=== PATIENT | female | born 1970 | race African-American/Black ===

== ENCOUNTER → 2016-09-20 | Outpatient (CLI) | payer BC | END | disposition home or self-care (01) | LOC: C.PAPS 08:35 | PROVIDERS: ATTEND Obstetrics & Gynecology | DX: Z01.419 Encounter for gynecological examination (general) (routine) without abnormal findings (principal) ==

== ENCOUNTER 2017-11-23 23:57 | Emergency (ER) | payer BC, OTHER ==
[~2017-11-23] VITALS: Ht 167.6 cm; Wt 62.6 kg
[2017-11-23 23:59] VITALS: TEMP 36.7; Ht 167.6 cm; Wt 62.6 kg
--- NOTE | 2017-11-24 00:28 | EMERGENCY ROOM VISIT NOTE ---
History Report prepared by Tony: Kayley Watt Under the Supervision of: Dr. Dorys Singh D.O. First contact with patient: 00:05 Chief Complaint: SWELLING TO EXTREMITY Stated Complaint: RT LEG SWELLING, REDNESS History of Present Illness The patient is a 47 year old female who presents to the Emergency Room with complaints of persistent right knee swelling since this evening. She reports recently having a bone graft surgery on November 21, 2017 associated with an ACL repair surgery. She states that she was given a nerve block and did not feel much pain until well after the next day. She notes that she is expected to have a second ACL repair surgery. She notes that her right knee is swollen, warm, and red. She notified her orthopedic surgeon who advised her to come to the ED for further evaluation. She denies any fevers or chills. She states that she was prescribed hydrocodone and has been taking it regularly. She reports nausea. She notes that she had tapered her dose of the hydrocodone and her knee pain worsened last night, so she continued the proper dose. She denies any constipation. She notes that she has been keeping up with her fluids. She states that she was on a prophylactic antibiotic treatment prior to the surgery. She regularly takes Wellbutrin and Cymbalta. She states that she was given the wrong anesthesia during surgery and suffered serotonin syndrome. She denies any history of being immunocompromised. Source of History: patient Onset: since this evening Position: knee (right) Quality: other (swelling) Timing: other (persistent) Associated Symptoms: + nausea, No fevers, No chills Note: She notes right knee is swollen, red, and warm. Denies any constipation. Review of Systems See HPI for pertinent positives & negatives. A total of 10 systems reviewed and were otherwise negative. Past Medical & Surgical Surgical Problems: (1) H/O bone graft (2) H/O hernia repair (3) S/P ACL repair Family History FHx: cancer Social History Smoking Status: Never Smoker Smokeless Tobacco Use: No Alcohol Use: occasionally Drug Use: none Marital Status: Housing Status: lives with significant other Occupation Status: employed Current/Historical Medications Scheduled Bupropion (Wellbutrin Sr), 450 MG PO DAILY Buspirone Hcl (Buspar), 40 MG PO DAILY Cephalexin Monohydrate (Keflex), 500 MG PO QID Duloxetine Hcl (Cymbalta), 90 MG PO DAILY Allergies Uncoded Allergies: SULFA (Allergy, Intermediate, headache, 11/24/17) Physical Exam Vital Signs Date Time Temp Pulse Resp B/P (MAP) Pulse Ox O2 Delivery O2 Flow Rate FiO2 11/24/17 02:42 72 20 126/72 98 11/24/17 01:47 78 20 131/68 99 Room Air 11/23/17 23:59 36.7 83 16 110/71 100 Room Air Physical Exam GENERAL: alert, well appearing, well nourished, no distress, non-toxic EYE EXAM: normal conjunctiva, PERRL and EOM's grossly intact OROPHARYNX: no exudate, no erythema, lips, buccal mucosa, and tongue normal and mucous membranes are moist NECK: supple, no nuchal rigidity, no adenopathy, non-tender LUNGS: Clear to auscultation. Normal chest wall mechanics HEART: no murmurs, S1 normal and S2 normal ABDOMEN: abdomen soft, non-tender, normo-active bowel sounds, no masses, no rebound or guarding. BACK: Back is symmetrical on inspection and there is no deformity, no midline tenderness, no CVA tenderness. SKIN: no rashes and no bruising UPPER EXTREMITIES: upper extremities are grossly normal. LOWER EXTREMITIES: Multiple incisions to right knee, sutures intact, no surrounding erythema, no drainage or bleeding from suture sites. Mild edema to right knee compared to left. Mild erythema noted superiorly and spreading medially with slightly increased warmth. No joint effusion. No distal edema. Normal pulses. NEURO EXAM: Normal sensorium, cranial nerves II-XII grossly intact, normal speech, no gross weakness of arms, no gross weakness of legs. Medical Decision & Procedures ER Provider Diagnostic Interpretation: Radiology results have been interpreted and reviewed by me. US VENOUS RIGHT LOWER EXTREMITY: No evidence for deep venous thrombosis involving the right lower extremity. Radiologist: Frankie Jacobs MD Study ready at 01:25 and initial results transmitted at 01:47 Laboratory Results 11/24/17 00:29 Red Blood Count 3.70, Mean Corpuscular Volume 95.7, Mean Corpuscular Hemoglobin 31.9, Mean Corpuscular Hemoglobin Concent 33.3, Mean Platelet Volume 10.0, Neutrophils (%) (Auto) 59.0, Lymphocytes (%) (Auto) 30.8, Monocytes (%) (Auto) 8.0, Eosinophils (%) (Auto) 1.3, Basophils (%) (Auto) 0.6, Neutrophils # (Auto) 5.29, Lymphocytes # (Auto) 2.76, Monocytes # (Auto) 0.72, Eosinophils # (Auto) 0.12, Basophils # (Auto) 0.05 11/24/17 00:29 Test 11/24/17 00:29 White Blood Count 8.97 K/uL (4.8-10.8) Red Blood Count 3.70 M/uL (4.2-5.4) Hemoglobin 11.8 g/dL (12.0-16.0) Hematocrit 35.4 % (37-47) Mean Corpuscular Volume 95.7 fL (80-100) Mean Corpuscular Hemoglobin 31.9 pg (25-34) Mean Corpuscular Hemoglobin Concent 33.3 g/dl (32-36) Platelet Count 270 K/uL (130-400) Mean Platelet Volume 10.0 fL (7.4-10.4) Neutrophils (%) (Auto) 59.0 % Lymphocytes (%) (Auto) 30.8 % Monocytes (%) (Auto) 8.0 % Eosinophils (%) (Auto) 1.3 % Basophils (%) (Auto) 0.6 % Neutrophils # (Auto) 5.29 K/uL (1.4-6.5) Lymphocytes # (Auto) 2.76 K/uL (1.2-3.4) Monocytes # (Auto) 0.72 K/uL (0.11-0.59) Eosinophils # (Auto) 0.12 K/uL (0-0.5) Basophils # (Auto) 0.05 K/uL (0-0.2) RDW Standard Deviation 43.4 fL (36.4-46.3) RDW Coefficient of Variation 12.5 % (11.5-14.5) Immature Granulocyte % (Auto) 0.3 % Immature Granulocyte # (Auto) 0.03 K/uL (0.00-0.02) Anion Gap 2.0 mmol/L (3-11) Est Creatinine Clear Calc Drug Dose 80.5 ml/min Estimated GFR () 101.0 Estimated GFR (Non- 87.2 BUN/Creatinine Ratio 15.6 (10-20) Calcium Level 8.3 mg/dl (8.5-10.1) Total Bilirubin 0.3 mg/dl (0.2-1) Aspartate Amino Transf (AST/SGOT) 12 U/L (15-37) Alanine Aminotransferase (ALT/SGPT) 18 U/L (12-78) Alkaline Phosphatase 50 U/L (45-117) Total Protein 6.0 gm/dl (6.4-8.2) Albumin 3.1 gm/dl (3.4-5.0) Globulin 2.9 gm/dl (2.5-4.0) Albumin/Globulin Ratio 1.1 (0.9-2) Laboratory results per my review. Medications Administered Medications (Trade) Dose Ordered Sig/Kelly Route Start Time Stop Time Status Last Admin Dose Admin Cephalexin Monohydrate (Keflex Cap) 500 mg NOW ONCE PO 11/24/17 01:00 11/24/17 01:01 DC 11/24/17 01:02 500 MG Cephalexin Monohydrate (Keflex 500MG Home Pack) 1 homepack NOW ONCE PO 11/24/17 02:30 11/24/17 02:31 DC 11/24/17 02:41 1 HOMEPACK ED Course 0007: The patient was evaluated in room A9B. A complete history and physical exam was performed. 0100: Ordered Keflex 500 mg PO 0138: I reassessed the patient at this time. She is resting. 0230: Ordered Keflex 1 homepack PO 0233: I reassessed the patient at this time. I discussed the results and treatment plan with the patient. I answered all pertaining questions that had. She expressed understanding and verbalized agreement. The patient will be discharged home. Medical Decision Prior records reviewed and summarized above. Triage Nursing notes reviewed. Additional history obtained from the family. The patient's history was concerning for swelling and pain in the leg. Differential diagnosis: Etiologies such as DVT, musculoskeletal, infection, joint effusion, trauma, lymphedema, idiopathic, CHF, as well as others were entertained. Patient well-appearing here, likely evolving cellulitis secondary to recent surgery. I do not suspect septic arthritis for osteomyelitis. No evidence of DVT. No systemic symptoms, labs reassuring, vital signs stable throughout. Patient agreeable with plan, encouraged close follow-up with either her PCP or her surgeon at [facility] to recheck the wounds as well as her cellulitis. Area outlined with a sterile marking pen as a precaution. Patient has been aware of all results and were agreeable with plan. Patient well-appearing at time of discharge. Discussed symptomatic control and prevention of constipation as well secondary to her pain medications postop. Medication Reconcilliation Current Medication List: was personally reviewed by me Blood Pressure Screening Patient's blood pressure: Normal blood pressure Impression Primary Impression: Cellulitis Scribe Attestation The scribe's documentation has been prepared under my direction and personally reviewed by me in its entirety. I confirm that the note above accurately reflects all work, treatment, procedures, and medical decision making performed by me. Departure Information Dispostion Home / Self-Care Prescriptions Cephalexin Monohydrate (Keflex) 500 Mg Cap 500 MG PO QID, #28 CAP Prov: Dorys Singh, DO 11/24/17 Referrals No Doctor, Assigned (PCP) Forms HOME CARE DOCUMENTATION FORM, IMPORTANT VISIT INFORMATION, WORK / SCHOOL INSTRUCTIONS Patient Instructions Cellulitis - [facility], My [facility] Additional Instructions Please take the antibiotics daily as prescribed. Please consider using a probiotic or eating yogurt daily to help prevent GI side effects while you are taking the antibiotic. Please call your surgeon at [facility] to discuss your symptoms as well as her evaluation tonight with them. Please have your family doctor or your surgeon recheck the area beginning of next week. If you develop worsening redness, increased pain or swelling, fevers or chills, nausea or vomiting, believe you are having an allergic reaction to the antibiotic, or you have any other new concerns, please return the emergency room. Problem Qualifiers Primary Impression: Cellulitis Site of cellulitis: extremity Site of cellulitis of extremity: lower extremity Laterality: right Qualified Codes: L03.115 - Cellulitis of right lower limb
[2017-11-24] MEDS ORDERED: BUPR100T8 PO (00:29)
[2017-11-24] MEDS ORDERED: BUSP15TA70 PO (00:30)
[2017-11-24] MEDS ORDERED: DULO60CA44 PO (00:31)
[2017-11-24 00:51] LABS: BASO % 0.6 %; BASO ABS # 0.05 K/uL (0-0.2); EOS % 1.3 %; EOS ABS # 0.12 K/uL (0-0.5); HEMATOCRIT 35.4 % (37-47); HEMOGLOBIN 11.8 g/dL (12.0-16.0); IG# 0.03 K/uL (0.00-0.02); LYMPH % 30.8 %; LYMPH ABS # 2.76 K/uL (1.2-3.4); MEAN CELL VOLUME 95.7 fL (80-100); MEAN CORPUSCULAR HEMOGLOBIN 31.9 pg (25-34); MEAN CORPUSCULAR HGB CONC 33.3 g/dl (32-36); MONO ABS # 0.72 K/uL (0.11-0.59); NEUT ABS # 5.29 K/uL (1.4-6.5); PLATELET COUNT 270 K/uL (130-400); RED CELL DISTRIBUTION WIDTH CV 12.5 % (11.5-14.5); RED CELL DISTRIBUTION WIDTH SD 43.4 fL (36.4-46.3); WHITE BLOOD COUNT 8.97 K/uL (4.8-10.8)
[2017-11-24] MEDS ORDERED: CEPHALEXIN MONOHYDRATE 250 MG CAP PO ONE (01:00)
[2017-11-24 01:06] LABS: ALBUMIN 3.1 gm/dl (3.4-5.0); CALCIUM 8.3 mg/dl (8.5-10.1); CREATININE 0.8 mg/dl (0.60-1.20); POTASSIUM 3.9 mmol/L (3.5-5.1)
[2017-11-24] MEDS ORDERED: CEPHALEXIN 500MG HOME PACK 1 EA BTL PO ONE (02:30)
[2017-11-24] MEDS ORDERED: CEPH500C PO (02:34)
[2017-11-24 02:42] VITALS: BP 126/72; PULSE 72; O2SAT 98
--- NOTE | 2017-11-24 06:29 | DIAGNOSTIC IMAGING REPORT ---
ULTRASOUND R VENOUS DOPP LOWER EXT UNILAT CLINICAL HISTORY: Right leg swelling. History of knee surgery. COMPARISON STUDY: No previous studies for comparison. FINDINGS: Real-time and color flow Doppler imaging were performed. Flow was seen within the femoral, popliteal and calf veins with no intraluminal thrombus demonstrated. The saphenous vein is patent. 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 IMPRESSION: No evidence of right lower extremity DVT Electronically signed by: Daniel Hager M.D. 11/24/2017 6:28 AM Dictated Date/Time: 11/24/2017 6:27 AM
== END 2017-11-24 02:44 | disposition home or self-care (01) ==
LOC: C.EDB 23:58 → C.EDA 11-24 02:44
DX: L03.115 Cellulitis of right lower limb (principal); Z79.899 Other long term (current) drug therapy; Z88.2 Allergy status to sulfonamides